=== PATIENT | female | born 1980 | race Caucasian/White ===

== ENCOUNTER → 2016-11-10 | Outpatient (REF) | payer OTHER ==
[~2016-11-10] MED LIST: ACET500T PO; ACET50TA PO; ANUS2.5C2 TOP; DOCU10ELUD PO; IBUP80TA PO; LEVO75TA2 OR; MOM30SS PO; PRENTAB8 PO; TUMS500C PO
[2016-11-10 13:58] LABS: BASO % 0.3 % (0.0-1.0); EOS # 0.1 K/mm3 (0.0-0.50); EOS % 1.3 % (0.0-3.0); LARGE UNSTAINED CELL # 0.2 K/mm3 (0.0-0.4); LARGE UNSTAINED CELL % 1.9 % (0.0-4.0); LYMPH # 2.8 K/mm3 (1.5-4.5); LYMPH % 28.5 % (24.0-44.0); MEAN CORPUSCULAR HEMOGLOBIN 29.9 pg (27.0-33.0); MEAN CORPUSCULAR HGB CONC 34.1 g/dl (32.0-36.5); MEAN CORPUSCULAR VOLUME 87.8 fl (80.0-96.0); MONO # 0.6 K/mm3 (0.0-0.8); MONO % 6.1 % (0.0-5.0); NEUTROPHILS % 61.8 % (36.0-66.0); PLATELET COUNT, AUTOMATED 304 k/mm3 (150-450); RED CELL DISTRIBUTION WIDTH 12.3 % (11.5-14.5); WHITE BLOOD COUNT 9.7 K/mm3 (4.0-10.0)
[2016-11-10 14:09] LABS: HBsAg Prenatal NEGATIVE (NEGATIVE)
[2016-11-10 14:10] LABS: CONTROL LINE INT CTR LINE PRESENT; HIV SCRN NEGATIVE (NEGATIVE); HIV SCRN1 NEGATIVE (NEGATIVE)
== END ==
LOC: M LABSMT 13:08
PROVIDERS: ATTEND Obstetrics & Gynecology
DX: Z36 Encounter for antenatal screening of mother (principal); Z3A.00 Weeks of gestation of pregnancy not specified

== ENCOUNTER → 2016-12-31 | Outpatient (CLI) | payer OTHER ==
[2016-12-31 20:08] LABS: FREE T4 1.15 NG/DL (0.76-1.46)
== END ==
LOC: M SMT 15:34
PROVIDERS: ATTEND Advanced Practice Midwife
DX: E03.9 Hypothyroidism, unspecified (principal)

== ENCOUNTER → 2017-01-02 | Outpatient (CLI) | payer OTHER ==
--- NOTE | 2017-01-02 15:25 | REP ---
Clinical: Anatomical evaluation. Comparison: None . Findings: Examination demonstrates a single live intrauterine in transverse presentation. motion is identified by technologist. Placenta is noted anteriorly and grade zero without evidence for placenta previa or abruption. Amniotic fluid volume is normal. Cervix measures 4.6 cm in length and appears closed. No evidence for nuchal cord. Gestational age by current measurements 19 weeks 6 days with YESICA 05/23/2017 . FHR equals 147 beats per minute. BPD 4.5 cm 18 weeks 5 days HC 17.1 cm 19 weeks 5 days AC 14.9 cm 20 weeks 1 day FL 3.0 cm 19 weeks 1 day HL 2.9 cm 19 weeks 3 days HC/AC ratio 1.15 Estimated weight 306 grams ( 40th percentile). Anatomical assessment demonstrates normal structures including cranium, choroid plexus, cavum, cerebellum/posterior fossa, facial profile, lungs, four-chamber heart/ left ventricular outflow tract, diaphragm, stomach, cord insertion/three-vessel cord, kidneys/bladder, spine, and extremities. Limited evaluation of the facial features and right cardiac ventricular outflow tract. Impression: Single live intrauterine in transverse lie. With the exception of facial features and right cardiac ventricular outflow tract (not visualized), anatomical assessment is complete and normal. Signed by Jacob Carmichael MD 01/02/2017 03:18 P
== END ==
LOC: M SMT 13:51
PROVIDERS: ATTEND Specialist
DX: Z36 Encounter for antenatal screening of mother (principal); Z3A.19 19 weeks gestation of pregnancy

== ENCOUNTER → 2017-02-02 | Outpatient (CLI) | payer OTHER ==
--- NOTE | 2017-02-03 04:17 | REP ---
Clinical: Anatomical evaluation. Comparison: 01/02/2017 . Findings: Examination demonstrates a single live intrauterine in cephalic presentation. motion is identified by technologist. Placenta is noted anteriorly and grade zero without evidence for placenta previa or abruption. Amniotic fluid volume is normal. Cervix measures 3.5 cm in length and appears closed. No evidence for nuchal cord. Gestational age by current measurements 23 weeks 5 days with YESICA 05/27/2017 . FHR equals 163 beats per minute. Estimated weight 664 grams ( 40th percentile). Anatomical assessment demonstrates normal structures including cranium, choroid plexus, lungs, four-chamber heart/ventricular outflow tracts, diaphragm, stomach, cord insertion/three-vessel cord, kidneys/bladder, spine, and extremities. Impression: Single live intrauterine in cephalic presentation demonstrating appropriate interval growth. In conjunction with prior examination anatomical assessment is complete and normal. Signed by Jacob Carmichael MD 02/03/2017 04:08 A
== END ==
LOC: M SMT 14:58
PROVIDERS: ATTEND Specialist
DX: Z36 Encounter for antenatal screening of mother (principal); Z3A.23 23 weeks gestation of pregnancy

== ENCOUNTER → 2017-03-19 | Outpatient (CLI) | payer OTHER ==
[2017-03-19 19:27] LABS: FREE T4 1.03 NG/DL (0.76-1.46)
== END ==
LOC: M SMT 11:40
PROVIDERS: ATTEND Obstetrics & Gynecology
DX: Z36 Encounter for antenatal screening of mother (principal); O99.89 Other specified diseases and conditions complicating pregnancy, childbirth and the puerperium; E03.9 Hypothyroidism, unspecified; Z3A.00 Weeks of gestation of pregnancy not specified

== ENCOUNTER → 2017-04-11 | Outpatient (CLI) | payer OTHER ==
[2017-04-11 18:29] LABS: BASO % 0.2 % (0.0-1.0); EOS # 0.1 K/mm3 (0.0-0.50); EOS % 0.8 % (0.0-3.0); LARGE UNSTAINED CELL # 0.2 K/mm3 (0.0-0.4); LARGE UNSTAINED CELL % 1.6 % (0.0-4.0); LYMPH # 2.7 K/mm3 (1.5-4.5); LYMPH % 18.5 % (24.0-44.0); MEAN CORPUSCULAR VOLUME 88.6 fl (80.0-96.0); MONO # 0.7 K/mm3 (0.0-0.8); MONO % 5.1 % (0.0-5.0); NEUTROPHILS % 73.8 % (36.0-66.0); PLATELET COUNT, AUTOMATED 293 k/mm3 (150-450); WHITE BLOOD COUNT 13.5 K/mm3 (4.0-10.0)
== END ==
LOC: M WUC 15:43
PROVIDERS: ATTEND Obstetrics & Gynecology
DX: Z36 Encounter for antenatal screening of mother (principal); Z3A.00 Weeks of gestation of pregnancy not specified

== ENCOUNTER → 2017-05-04 | Outpatient (REF) | payer OTHER | LOC: M LAB REF 12:51 | PROVIDERS: ATTEND Advanced Practice Midwife | DX: Z36 Encounter for antenatal screening of mother (principal); Z3A.00 Weeks of gestation of pregnancy not specified ==

== ENCOUNTER → 2017-05-11 | Outpatient (CLI) | payer OTHER ==
--- NOTE | 2017-05-11 16:38 | REP ---
Obstetric ultrasound for size, date discrepancy: Based on the first ultrasound during this gestation gestational age is 38 weeks 2 days with an YESICA of 05/23/2017. Based on the ultrasound today gestational age is 36 weeks 2 days with an YESICA of nine 11/24/2016. There is a single intrauterine gestation in a vertex presentation. The heart rate is 131 beats per minute. The placenta is anterior and there is no placenta previa. The amniotic fluid volume subjectively is low normal. The amniotic fluid index is 7.1. There is a 7.3 - 23.5 weight is 3319 grams (7 pounds, 5 ounces). This is the 52nd percentile for 38 weeks 2 days. Umbilical artery Doppler assessment: SD ratio 2.86 Resistive index 0.65 Diastolic flow velocity 30.5 cm/sec. These values are in their normal ranges. Signed by Rambo Woods MD 05/11/2017 04:29 P
== END ==
LOC: M SMT 14:57
PROVIDERS: ATTEND Advanced Practice Midwife
DX: O26.843 Uterine size-date discrepancy, third trimester (principal); Z3A.36 36 weeks gestation of pregnancy

== ENCOUNTER 2017-05-14 06:07 | Inpatient (IN) | payer OTHER ==
[~2017-05-14] VITALS: Ht 167.6 cm; Wt 122.0 kg
[2017-05-14 06:19] VITALS: BP 131/85
[2017-05-14 07:16] LABS: MEAN CORPUSCULAR HGB CONC 34.2 g/dl (32.0-36.5); MEAN CORPUSCULAR VOLUME 87.9 fl (80.0-96.0); RED CELL DISTRIBUTION WIDTH 13.3 % (11.5-14.5); WHITE BLOOD COUNT 11.2 K/mm3 (4.0-10.0)
[2017-05-14] MEDS ORDERED: FENTANYL 2MCG/ML ROPIVACAINE 0.2% IN 0.9% NACL 200ML IVBAG As Ordered ONE (07:20)
[2017-05-14] MEDS ORDERED: LR 1,000 ML IV SCH (07:29)
[2017-05-14] MEDS ORDERED: ePHEDrine SULFATE 25 MG/5 ML(5MG/ML) SYRINGE IV PRN (08:15)
[2017-05-14] MEDS ORDERED: EPIDURAL/PCA KEYS XX PRN (08:15)
[2017-05-14] MEDS ORDERED: EPIDURAL COMMENT XX SCH (08:15)
[2017-05-14] MEDS ORDERED: LACTATED RINGER'S 1000 ML IV PRN (08:15)
[2017-05-14] MEDS ORDERED: diphenhydrAMINE INJ 50MG/ML VIAL (J1200) IV PRN (08:15)
[2017-05-14] MEDS ORDERED: NALOXONE INJ 0.4 MG/1 ML VIAL (J2310) IV PRN (08:15)
[2017-05-14] MEDS ORDERED: ONDANSETRON 4MG/2ML VIAL (J2405) IV PRN ×2 (08:15→11:30)
[2017-05-14] MEDS ORDERED: FENTANYL/ROPIVACAINE/NACL BAG 200 ML EPIDURAL SCH (08:15)
[2017-05-14] MEDS ORDERED: REFRIGERATOR IV KEYS XX PRN (08:15)
[2017-05-14] MEDS ORDERED: OXYTOCIN DRIP 30 UNITS in APPROPRIATE DILUENT 1 EA IV SCH (09:00)
--- NOTE | 2017-05-14 09:29 | HPE ---
DATE OF ADMISSION: 05/14/2017 HISTORY: 37-year-old 6, para 4-0-1-4 female at 38-2/7 weeks gestation by last menstrual period (LMP) consistent with six week ultrasound. Estimated date of confinement (EDC) of 05/26/2017 who presents with regular contractions every 2-3 minutes for the last several hours, contractions increased in intensity, small amount of vaginal bleeding. There is good movement. COURSE: Patient initiated care at 13 weeks gestation. On 11/18/2016 her blood pressure was 126/80, weight 275 pounds. course was unremarkable. OBSTETRICAL HISTORY: 1. May 2001, 40 weeks, vaginal delivery, 7 pound 12 ounce male infant. 2. May 2005, 40 weeks, vaginal delivery, 7 pound 10 ounce male . 3. 2007, 40 weeks, vaginal delivery, 8 pound 4 ounce female infant. 4. 2011, 42 weeks, vaginal delivery 7 pound 6 ounce female . 5. 2014, 7 week spontaneous miscarriage. MEDICAL HISTORY: 1. Varicose vein left leg. 2. Hypothyroidism. 3. Depression/anxiety. SURGERIES: None. ALLERGIES: None. SOCIAL HISTORY: The father of the baby is not involved. The patient smoked half a pack of cigarettes per day during . She smokes more when she is not . She denies alcohol or drug use. FAMILY HISTORY: Noncontributory. PHYSICAL EXAMINATION: Blood pressure 134/74, pulse 84. She appears uncomfortable. Head and neck exam normal. Lungs clear. Heart regular rate and rhythm. Abdomen nontender, gravid. heart tones category 1. Cervix 5 cm, 80% effaced, -2 station, vertex, intact. Extremities nontender. LABORATORIES: Blood type A positive. Rubella immune. RPR nonreactive. Hepatitis B and C negative. HIV negative. ASSESSMENT: 37-year-old G6, P4 female at 38-2/7 weeks gestation who presents in active labor. Patient was admitted on 05/14/2017.
[2017-05-14] MEDS ORDERED: DOCUSATE SODIUM 100 MG CAP PO PRN (11:30)
[2017-05-14] MEDS ORDERED: ACETAMINOPHEN 500 MG TAB PO PRN (11:30)
[2017-05-14] MEDS ORDERED: RHOGAM 300 MCG (1500 IU) INJ (J2790) IM SCH (11:30)
[2017-05-14] MEDS ORDERED: OXYTOCIN DRIP 30 UNITS in APPROPRIATE DILUENT 1 EA IV ONE (11:30)
[2017-05-14] MEDS ORDERED: DIBUCAINE 1% OINTMENT 30GM TOP PRN (11:30)
[2017-05-14] MEDS ORDERED: METHYLERGONOVINE MALEATE 0.2 MG TAB PO PRN (11:30)
[2017-05-14] MEDS ORDERED: MEASLES,MUMPS,RUBELLA VACCINE INJ (MMR-II) (90707) SC SCH (11:30)
[2017-05-14] MEDS ORDERED: IBUPROFEN 800 MG TAB PO PRN (11:30)
[2017-05-14 13:30] VITALS: BP 116/55
[2017-05-14] MEDS: PRENATAL VITAMINS CHEWABLE TABLET PO SCH (17:13)
[2017-05-14 18:23] VITALS: BP 115/65
[2017-05-15 05:59] VITALS: BP 124/55
[2017-05-15] MEDS: PRENATAL VITAMINS CHEWABLE TABLET PO SCH (09:25)
--- NOTE | 2017-05-15 10:32 | DN ---
DATE OF DELIVERY: 05/14/2017 PREDELIVERY DIAGNOSIS: 38-2/7 weeks , active labor. POSTDELIVERY DIAGNOSIS: Delivered. PROCEDURE: Spontaneous vaginal delivery. INSPECTOR AIR CARRIER: Jakub Goodwin MD ANESTHESIA: Epidural. ESTIMATED BLOOD LOSS: 30 mL. FINDINGS: 7 pound 7 ounce or 3392 gram male . scores of 9 and 9. DELIVERY SUMMARY: After a short second stage, the patient had spontaneous delivery of a 7 pound 7 ounce male with scores of 9 and 9 under epidural anesthesia. A loose nuchal cord times one was reduced. The shoulders delivered with ease. The cried spontaneously and was handed to the mother. The placenta delivered spontaneously and appeared to be intact. The patient received IV pitocin immediately after delivery of the placenta. There were no vaginal lacerations present. Sponge counts were correct.
[2017-05-15 17:44] VITALS: BP 115/51
[2017-05-15 21:07] VITALS: BP 115/51
[2017-05-16 05:45] VITALS: BP 131/72
[2017-05-16] MEDS: PRENATAL VITAMINS CHEWABLE TABLET PO SCH (09:15)
== END 2017-05-16 11:50 | disposition home or self-care (01) | DRG 560 ==
LOC: M LDO 06:07 → M LDI 06:32 → M OBS 12:45
PROVIDERS: ADMIT Obstetrics & Gynecology; ATTEND Obstetrics & Gynecology
PROC: 10E0XZZ Delivery of Products of Conception, External Approach (ICD-10-PCS; principal; 2017-05-14)
DX: O99.334 Smoking (tobacco) complicating childbirth (principal); Z37.0 Single live birth; Z3A.38 38 weeks gestation of pregnancy; F17.210 Nicotine dependence, cigarettes, uncomplicated; O69.82X0 Labor and delivery complicated by other cord entanglement, without compression, not applicable or unspecified

== ENCOUNTER → 2018-03-26 | Outpatient (CLI) | payer OTHER ==
[2018-03-26 12:19] LABS: ANION GAP 7 MEQ/L (8-16); BLOOD UREA NITROGEN 24 MG/DL (7-18); CARBON DIOXIDE LEVEL 29 MEQ/L (21-32); CHLORIDE LEVEL 107 MEQ/L (98-107); CREATININE FOR GFR 0.77 MG/DL (0.55-1.30); GLOMERULAR FILTRATION RATE > 60.0 (>60); GLUCOSE, FASTING 78 MG/DL (70-100); POTASSIUM SERUM 4.5 MEQ/L (3.5-5.1); SODIUM LEVEL 143 MEQ/L (136-145)
[2018-03-26 12:20] LABS: ALBUMIN 3.8 GM/DL (3.2-5.2); ALBUMIN/GLOBULIN RATIO 1.12 (1.00-1.93); ALKALINE PHOSPHATASE 70 U/L (45-117); ALT/SGPT 23 U/L (12-78); AST/SGOT 6 U/L (7-37); BILIRUBIN,TOTAL 0.5 MG/DL (0.2-1.0); CALCIUM LEVEL 8.4 MG/DL (8.5-10.1); CHOLESTEROL LEVEL 177 MG/DL (<200); CHOLESTEROL RISK RATIO 4.425 (<5); FREE T4 1.22 NG/DL (0.76-1.46); HDL CHOLESTEROL 40 MG/DL (>40); LDL CHOLESTEROL 116.4 MG/DL (<100); NON-HDL-C 137 MG/DL; TOTAL PROTEIN 7.2 GM/DL (6.4-8.2); TRIGLYCERIDES LEVEL 103 MG/DL (<150); VITAMIN B12 LEVEL 458 PG/ML (247-911)
[2018-03-26 12:26] LABS: ESTIMATED AVERAGE GLUCOSE 97 MG/DL (60-110)
[2018-03-26 15:07] LABS: BASO % 0.5 % (0.0-1.0); EOS # 0.1 10^3/uL (0.0-0.50); EOS % 1.7 % (0.0-3.0); HEMATOCRIT 42.5 % (36.0-47.0); HEMOGLOBIN 14.4 g/dl (12.0-15.5); IMMATURE GRANULOCYTE % 0.2 % (0-3.0); LYMPH # 2.7 10^3/uL (1.5-4.5); LYMPH % 41.6 % (24.0-44.0); MEAN CORPUSCULAR HEMOGLOBIN 29.7 pg (27.0-33.0); MEAN CORPUSCULAR HGB CONC 33.9 g/dl (32.0-36.5); MEAN CORPUSCULAR VOLUME 87.6 fl (80.0-96.0); MONO # 0.6 10^3/uL (0.0-0.8); MONO % 9.5 % (0.0-5.0); NEUTROPHILS % 46.5 % (36.0-66.0); PLATELET COUNT, AUTOMATED 253 10^3/uL (150-450); RED BLOOD COUNT 4.85 10^6/uL (4.00-5.40); RED CELL DISTRIBUTION WIDTH 12.1 % (11.5-14.5); WHITE BLOOD COUNT 6.4 10^3/uL (4.0-10.0)
== END ==
LOC: M WUC 08:23
DX: E03.9 Hypothyroidism, unspecified (principal); E66.01 Morbid (severe) obesity due to excess calories; Z86.2 Personal history of diseases of the blood and blood-forming organs and certain disorders involving the immune mechanism
CPT/HCPCS: 84443

== ENCOUNTER → 2018-04-26 | Outpatient (REF) | payer OTHER ==
[2018-04-26 23:06] LABS: CHLAMYDIA DNA AMPLIFICATION NEGATIVE (NEGATIVE); GC DNA AMPLIFICATION NEGATIVE (NEGATIVE)
== END ==
LOC: M SFHCLERA 15:16
DX: R30.0 Dysuria (principal)

== ENCOUNTER → 2018-05-11 | Outpatient (CLI) | payer OTHER | LOC: M WHC 15:01 | DX: R59.1 Generalized enlarged lymph nodes (principal) | CPT/HCPCS: 76882 ==

== ENCOUNTER → 2018-12-22 | Outpatient (REF) | payer OTHER ==
[2018-12-22 11:50] LABS: BASO % 0.5 % (0.0-1.0); EOS # 0.1 10^3/uL (0.0-0.50); EOS % 1.7 % (0.0-3.0); HEMATOCRIT 43.9 % (36.0-47.0); HEMOGLOBIN 14.6 g/dl (12.0-15.5); LYMPH # 2.4 10^3/uL (1.5-4.5); LYMPH % 36.2 % (24.0-44.0); MEAN CORPUSCULAR HEMOGLOBIN 29.4 pg (27.0-33.0); MEAN CORPUSCULAR HGB CONC 33.3 g/dl (32.0-36.5); MEAN CORPUSCULAR VOLUME 88.3 fl (80.0-96.0); MONO # 0.8 10^3/uL (0.0-0.8); MONO % 12.2 % (0.0-5.0); NEUTROPHILS # 3.3 10^3/uL (1.8-7.7); NEUTROPHILS % 49.1 % (36.0-66.0); PLATELET COUNT, AUTOMATED 294 10^3/uL (150-450); RED BLOOD COUNT 4.97 10^6/uL (4.00-5.40); WHITE BLOOD COUNT 6.7 10^3/uL (4.0-10.0)
[2018-12-22 12:14] LABS: C REACTIVE PROTEIN QUANTITATIV < 0.30 MG/DL (0.00-0.30); CHOLESTEROL LEVEL 191 MG/DL (<200); CHOLESTEROL RISK RATIO 5.787 (<5); FREE T4 1.12 NG/DL (0.76-1.46); HDL CHOLESTEROL 33 MG/DL (>40); LDL CHOLESTEROL 122 MG/DL (<100); NON-HDL-C 158 MG/DL; THYROID STIMULATING HORMONE 0.645 uIU/ML (0.358-3.740); TRIGLYCERIDES LEVEL 180 MG/DL (<150); VITAMIN B12 LEVEL 602 PG/ML (247-911)
[2018-12-22 12:15] LABS: ERYTHROCYTE SEDIMENTATION RATE 17 mm/hr (0-20)
[2018-12-22 13:11] LABS: HEMOGLOBIN A1c 5.4 %
== END ==
LOC: M SFHCPLAZ 08:54
PROVIDERS: ATTEND Physician Assistant Medical
DX: E03.9 Hypothyroidism, unspecified (principal); E66.01 Morbid (severe) obesity due to excess calories; Z86.2 Personal history of diseases of the blood and blood-forming organs and certain disorders involving the immune mechanism; R59.1 Generalized enlarged lymph nodes

== ENCOUNTER 2020-05-09 15:30 | Emergency (ER) | payer OTHER ==
[~2020-05-09 15:30] MED LIST changes: -ACET50TA PO; -DOCU10ELUD PO; +DOCU5LIQ PO; +MAPA500T17 PO
[2020-06-08 12:16] LABS: APPEARANCE, URINE CLEAR (CLEAR); BACTERIA, URINE AUTO NEGATIVE (NEGATIVE); BILIRUBIN, URINE AUTO NEGATIVE (NEGATIVE); BLOOD, URINE BLOOD NEGATIVE (NEGATIVE); COLOR, URINE YELLOW (YELLOW); GLUCOSE, URINE (UA) AUTO NEGATIVE (NEGATIVE); KETONE, URINE AUTO NEGATIVE (NEGATIVE); LEUKOCYTE ESTERASE, URINE AUTO NEGATIVE (NEGATIVE); NITRITE, URINE AUTO NEGATIVE (NEGATIVE); PROTEIN, URINE AUTO NEGATIVE (NEGATIVE); RBC, URINE AUTO 1 /HPF (0-3); SPECIFIC GRAVITY URINE AUTO 1.019 (1.002-1.035); SQUAMOUS EPITHELIAL CELL UR AU 0 /HPF (0-6); UROBILINOGEN, URINE AUTO 0.2 mg/dL (0.0-2.0); WBC, URINE AUTO 1 /HPF (0-3)
[2020-06-08 12:20] LABS: BASO % 0.3 % (0.0-1.0); EOS # 0.1 10^3/uL (0.0-0.5); EOS % 1.3 % (0.0-3.0); LYMPH # 2.4 10^3/uL (1.5-5.0); LYMPH % 29.5 % (24.0-44.0); MEAN CORPUSCULAR HEMOGLOBIN 28.6 pg (27.0-33.0); MEAN CORPUSCULAR HGB CONC 32.6 g/dl (32.0-36.5); MEAN CORPUSCULAR VOLUME 87.9 fl (80.0-96.0); MONO # 0.8 10^3/uL (0.0-0.8); MONO % 9.8 % (0.0-5.0); NEUTROPHILS # 4.7 10^3/uL (1.5-8.5); NEUTROPHILS % 58.5 % (36.0-66.0); PLATELET COUNT, AUTOMATED 294 10^3/uL (150-450); RED BLOOD COUNT 4.89 10^6/uL (4.00-5.40)
--- NOTE | 2020-06-19 09:18 | ECGEPIP ---
[facility] - ED Test Date: 2020-05-09 Pat Name: MICHAEL RAI Department: Room: - Gender: Female Fire Sprinkler Fitter: SIM : [id number] Requested By: EMERGENCY ROOM Order Number: [id number] Reading MD: Shirley Koehler Measurements Intervals [place] Rate: 70 P: 54 NM: 136 QRS: 7 QRSD: 110 T: 31 QT: 399 QTc: 433 Interpretive Statements SINUS RHYTHM WITH SINUS ARRHYTHMIA INCOMPLETE RIGHT BUNDLE BRANCH BLOCK BORDERLINE ECG SEE SCANNED DOWNTIME RECORD
[2020-06-23 12:41] LABS: BLOOD UREA NITROGEN 21 MG/DL (7-18); CARBON DIOXIDE LEVEL 29 MEQ/L (21-32); CHLORIDE LEVEL 107 MEQ/L (98-107); CK-MB VALUE MASS 1.8 NG/ML (<3.6); CPK CREATINE PHOSPHOKINASE 174 U/L (26-192); CREATININE FOR GFR 0.89 MG/DL (0.55-1.30); FERRITIN 19 NG/ML (8-252); GLOMERULAR FILTRATION RATE > 60.0 (>58); GLUCOSE, FASTING 86 MG/DL (70-100); MB/CK RELATIVE INDEX 1.03 (< OR =4); POTASSIUM SERUM 4.1 MEQ/L (3.5-5.1); SODIUM LEVEL 141 MEQ/L (136-145); THYROID STIMULATING HORMONE 0.548 uIU/ML (0.358-3.740); TROPONIN I < 0.02 NG/ML (< 0.10)
[2020-06-23 13:33] LABS: HCG, SERUM QUALITATIVE NEGATIVE (NEGATIVE)
== END 2020-05-09 18:56 | disposition home or self-care (01) ==
LOC: M ED 15:30
DX: R42 Dizziness and giddiness (principal); I49.9 Cardiac arrhythmia, unspecified; E03.9 Hypothyroidism, unspecified; Z79.899 Other long term (current) drug therapy

== ENCOUNTER → 2020-05-17 | Outpatient (REF) | payer OTHER | LOC: M SFHCWAGY 12:17 | PROVIDERS: ATTEND Nurse Practitioner Women's Health | DX: Z12.4 Encounter for screening for malignant neoplasm of cervix (principal) ==

== ENCOUNTER → 2020-06-28 | Outpatient (CLI) | payer OTHER | LOC: M PLALAB 14:46 | PROVIDERS: ATTEND Nurse Practitioner Adult Health | DX: E03.9 Hypothyroidism, unspecified (principal) ==

== ENCOUNTER → 2021-06-28 | Outpatient (REF) | LOC: M LABSMTC 10:39 | PROVIDERS: ATTEND Pediatrics | DX: Z11.52 Encounter for screening for COVID-19 (principal) ==

== ENCOUNTER → 2021-07-02 | Outpatient (REF) | LOC: M EMP 08:32 | PROVIDERS: ATTEND Family Medicine | DX: Z11.52 Encounter for screening for COVID-19 (principal) ==

== ENCOUNTER 2021-07-04 13:31 | Outpatient (CLI) | payer OTHER ==
[2021-07-04] VITALS (7 sets, daily range): BP systolic 127–160; BP diastolic 62–89
[~2021-07-04] VITALS: Ht 177.8 cm; Wt 145.5 kg
[~2021-07-04 13:31] MED LIST changes: +ALBUTEROL 90 MCG/ACT 8GM HFA INHALER INH PRN; +ALBUTEROL SULFATE 2.5 MG/0.5 ML INH NEB SOLN INH PRN; +EPINEPHrine INJ 1 MG/ML 1ML AMP IM PRN; +NS 1,000 ML IV SCH; +diphenhydrAMINE 50MG/ML VIAL (J1200) IV PRN; +methylPREDNISolone 125MG 2ML VIAL IV PRN
[2021-07-04] MEDS ORDERED: ACETAMINOPHEN TAB 650MG DOSE (2X325MG) PO ONE (15:00)
[2021-07-04] MEDS ORDERED: CASIRIVIMAB/IMDEVIMAB 1,200 MG in NS 250 ML IV ONE (15:30)
[2021-07-04] MEDS ORDERED: ZOLO50TA PO (16:48)
[2021-07-04] MEDS ORDERED: SYNT88TA2 PO (16:49)
== END 2021-07-04 17:30 | disposition home or self-care (01) ==
LOC: M MS4PR 13:31 → M OPCLI4 13:31 → M 4MAIN 13:34 → M OPCLI4 17:30
PROVIDERS: ATTEND Physician Assistant
DX: U07.1 COVID-19 (principal)

== ENCOUNTER → 2021-08-23 | Outpatient (CLI) | payer OTHER ==
[~2021-08-23] MED LIST changes: -ALBUTEROL 90 MCG/ACT 8GM HFA INHALER INH PRN; -ALBUTEROL SULFATE 2.5 MG/0.5 ML INH NEB SOLN INH PRN; -EPINEPHrine INJ 1 MG/ML 1ML AMP IM PRN; -NS 1,000 ML IV SCH; +SYNT88TA2 PO; +ZOLO50TA PO; -diphenhydrAMINE 50MG/ML VIAL (J1200) IV PRN; -methylPREDNISolone 125MG 2ML VIAL IV PRN
[2021-08-23 07:06] LABS: HEMATOCRIT 43.7 % (36.0-47.0); HEMOGLOBIN 14.3 g/dl (12.0-15.5); MEAN CORPUSCULAR HEMOGLOBIN 28.4 pg (27.0-33.0); MEAN CORPUSCULAR HGB CONC 32.7 g/dl (32.0-36.5); MEAN CORPUSCULAR VOLUME 86.7 fl (80.0-96.0); PLATELET COUNT, AUTOMATED 328 10^3/uL (150-450); RED BLOOD COUNT 5.04 10^6/uL (4.00-5.40); WHITE BLOOD COUNT 8.4 10^3/uL (4.0-10.0)
[2021-08-23 07:24] LABS: HEMOGLOBIN A1c 5.4 %
[2021-08-23 07:47] LABS: ALBUMIN 3.8 GM/DL (3.2-5.2); ALT/SGPT 47 U/L (12-78); BILIRUBIN,TOTAL 0.3 MG/DL (0.2-1.0); BLOOD UREA NITROGEN 20 MG/DL (7-18); CALCIUM LEVEL 8.9 MG/DL (8.5-10.1); CARBON DIOXIDE LEVEL 28 MEQ/L (21-32); CHLORIDE LEVEL 107 MEQ/L (98-107); CHOLESTEROL LEVEL 229 MG/DL (<200); CHOLESTEROL RISK RATIO 8.178 (<5); CREATININE FOR GFR 0.98 MG/DL (0.55-1.30); FREE T4 1.08 NG/DL (0.76-1.46); GLOMERULAR FILTRATION RATE > 60.0 (>58); GLUCOSE, FASTING 92 MG/DL (70-100); HDL CHOLESTEROL 28 MG/DL (>40); LDL CHOLESTEROL 132 MG/DL (<100); NON-HDL-C 201 MG/DL; POTASSIUM SERUM 4.3 MEQ/L (3.5-5.1); SODIUM LEVEL 139 MEQ/L (136-145); TOTAL PROTEIN 7.4 GM/DL (6.4-8.2); TRIGLYCERIDES LEVEL 343 MG/DL (<150)
[2021-08-23 11:18] LABS: TOTAL 25(OH) VITAMIN D 26.4 NG/ML (30.0-100.0)
[2021-08-23 11:19] LABS: FOLATE 11.6 NG/ML; VITAMIN B12 LEVEL 416 PG/ML
== END ==
LOC: M LAB 06:20
PROVIDERS: ATTEND Physician Assistant
DX: E03.9 Hypothyroidism, unspecified (principal); E78.2 Mixed hyperlipidemia; Z13.1 Encounter for screening for diabetes mellitus; R20.0 Anesthesia of skin

== ENCOUNTER → 2022-01-01 | Outpatient (CLI) | payer OTHER ==
[2022-01-01 08:12] LABS: FREE T4 1.36 NG/DL (0.76-1.46); THYROID STIMULATING HORMONE 0.706 uIU/ML (0.358-3.740)
== END ==
LOC: M LAB 06:15
PROVIDERS: ATTEND Physician Assistant
DX: E03.9 Hypothyroidism, unspecified (principal)

== ENCOUNTER → 2022-04-22 | Outpatient (CLI) | payer OTHER ==
[~2022-04-22] MED LIST changes: +BUPR150T12; +CEPH500C; +LEVO200T4; +OMEP40CA5
== END ==
LOC: M RAD 14:25
PROVIDERS: ATTEND Physician Assistant
DX: M79.89 Other specified soft tissue disorders (principal); R22.42 Localized swelling, mass and lump, left lower limb

== ENCOUNTER → 2022-04-22 | Outpatient (REF) | payer OTHER ==
[~2022-04-22] MED LIST changes: -BUPR150T12; -CEPH500C; -LEVO200T4; -OMEP40CA5
[2022-04-22 12:56] LABS: BASO % 0.3 % (0.0-1.0); EOS # 0.2 10^3/uL (0.0-0.5); EOS % 1.7 % (0.0-3.0); HEMATOCRIT 44.1 % (36.0-47.0); HEMOGLOBIN 14.1 g/dl (12.0-15.5); LYMPH # 2.5 10^3/uL (1.5-5.0); LYMPH % 24.7 % (24.0-44.0); MEAN CORPUSCULAR HEMOGLOBIN 27.7 pg (27.0-33.0); MEAN CORPUSCULAR VOLUME 86.6 fl (80.0-96.0); MONO # 1.1 10^3/uL (0.0-0.8); MONO % 10.7 % (2.0-8.0); NEUTROPHILS # 6.4 10^3/uL (1.5-8.5); NEUTROPHILS % 62.1 % (36.0-66.0); PLATELET COUNT, AUTOMATED 331 10^3/uL (150-450); RED BLOOD COUNT 5.09 10^6/uL (4.00-5.40); WHITE BLOOD COUNT 10.3 10^3/uL (4.0-10.0)
[2022-04-22 13:35] LABS: BLOOD UREA NITROGEN 22 MG/DL (7-18); CALCIUM LEVEL 9.3 MG/DL (8.5-10.1); CARBON DIOXIDE LEVEL 27 MEQ/L (21-32); CHLORIDE LEVEL 108 MEQ/L (98-107); CREATININE FOR GFR 1.01 MG/DL (0.55-1.30); GLOMERULAR FILTRATION RATE > 60.0 (>58); GLUCOSE, FASTING 82 MG/DL (70-100); POTASSIUM SERUM 4.5 MEQ/L (3.5-5.1); SODIUM LEVEL 142 MEQ/L (136-145)
== END ==
LOC: M SFHCADAM 11:38
PROVIDERS: ATTEND Physician Assistant
DX: M79.89 Other specified soft tissue disorders (principal)

== ENCOUNTER 2022-04-29 06:50 | Emergency (ER) | payer OTHER ==
[~2022-04-29] VITALS: Ht 175.3 cm; Wt 157.1 kg
[2022-04-29] MEDS ORDERED: OMEP40CA5 (06:57)
[2022-04-29] MEDS ORDERED: LEVO200T4 (06:57)
[2022-04-29] MEDS ORDERED: BUPR150T12 (06:57)
[2022-04-29] MEDS ORDERED: CEPH500C (06:58)
[2022-04-29 09:04] VITALS: BP 155/75
== END 2022-04-29 09:09 | disposition home or self-care (01) ==
LOC: M ED 06:50
DX: I80.02 Phlebitis and thrombophlebitis of superficial vessels of left lower extremity (principal); I83.812 Varicose veins of left lower extremity with pain; F41.9 Anxiety disorder, unspecified; F17.200 Nicotine dependence, unspecified, uncomplicated; E03.9 Hypothyroidism, unspecified; Z79.899 Other long term (current) drug therapy; Z79.890 Hormone replacement therapy

== ENCOUNTER → 2022-05-05 | Outpatient (REF) | payer OTHER ==
[~2022-05-05] MED LIST changes: +BUPR150T12; +CEPH500C; +LEVO200T4; +OMEP40CA5
[2022-05-05 16:32] LABS: BASO % 0.3 % (0.0-1.0); EOS % 1.6 % (0.0-3.0); HEMATOCRIT 44.6 % (36.0-47.0); HEMOGLOBIN 14.5 g/dl (12.0-15.5); LYMPH % 29.5 % (24.0-44.0); MEAN CORPUSCULAR HEMOGLOBIN 27.9 pg (27.0-33.0); MEAN CORPUSCULAR HGB CONC 32.5 g/dl (32.0-36.5); MEAN CORPUSCULAR VOLUME 85.8 fl (80.0-96.0); MONO % 7.6 % (2.0-8.0); NEUTROPHILS % 60.4 % (36.0-66.0); PLATELET COUNT, AUTOMATED 344 10^3/uL (150-450); WHITE BLOOD COUNT 11.2 10^3/uL (4.0-10.0)
[2022-05-05 16:33] LABS: EOS # 0.2 10^3/uL (0.0-0.5); LYMPH # 3.3 10^3/uL (1.5-5.0); MONO # 0.9 10^3/uL (0.0-0.8); NEUTROPHILS # 6.8 10^3/uL (1.5-8.5)
== END ==
LOC: M SFHCADAM 15:06
PROVIDERS: ATTEND Physician Assistant
DX: I80.9 Phlebitis and thrombophlebitis of unspecified site (principal)

== ENCOUNTER 2022-05-09 08:58 | Emergency (ER) | payer OTHER ==
[~2022-05-09] VITALS: Ht 175.3 cm; Wt 158.3 kg
[~2022-05-09 08:58] MED LIST changes: -BUPR150T12; +BUPR150T12 PO; -LEVO200T4; +LEVO200T4 PO
[2022-05-09 13:19] LABS: BASO % 0.3 % (0.0-1.0); EOS # 0.1 10^3/uL (0.0-0.5); EOS % 1.3 % (0.0-3.0); HEMATOCRIT 44.9 % (36.0-47.0); HEMOGLOBIN 14.8 g/dl (12.0-15.5); LYMPH # 2.6 10^3/uL (1.5-5.0); LYMPH % 26.4 % (24.0-44.0); MEAN CORPUSCULAR HEMOGLOBIN 28.5 pg (27.0-33.0); MEAN CORPUSCULAR VOLUME 86.5 fl (80.0-96.0); MONO # 0.8 10^3/uL (0.0-0.8); MONO % 8.4 % (2.0-8.0); NEUTROPHILS # 6.3 10^3/uL (1.5-8.5); PLATELET COUNT, AUTOMATED 348 10^3/uL (150-450); RED BLOOD COUNT 5.19 10^6/uL (4.00-5.40); WHITE BLOOD COUNT 9.9 10^3/uL (4.0-10.0)
[2022-05-09 13:45] LABS: ERYTHROCYTE SEDIMENTATION RATE 26 mm/hr (0-20)
[2022-05-09 14:04] LABS: BLOOD UREA NITROGEN 16 MG/DL (7-18); C REACTIVE PROTEIN QUANTITATIV 0.88 MG/DL (0.00-0.30); CALCIUM LEVEL 9.4 MG/DL (8.5-10.1); CARBON DIOXIDE LEVEL 29 MEQ/L (21-32); CHLORIDE LEVEL 105 MEQ/L (98-107); GLOMERULAR FILTRATION RATE > 60.0 (>58); GLUCOSE, FASTING 90 MG/DL (70-100); POTASSIUM SERUM 4.4 MEQ/L (3.5-5.1); SODIUM LEVEL 139 MEQ/L (136-145)
[2022-05-09] MEDS ORDERED: BACI1TAB3 PO (16:12)
[2022-05-09] MEDS ORDERED: IBUP-1720 PO (16:12)
[2022-05-09] MEDS ORDERED: DOXY-443 PO (16:12)
[2022-05-09] MEDS ORDERED: HOME MED LIST COMPLETE! XX SCH (16:15)
[2022-05-09] MEDS ORDERED: ASPI325T45 PO (17:04)
[2022-05-09 17:14] VITALS: BP 165/70
== END 2022-05-09 17:16 | disposition home or self-care (01) ==
LOC: M ED 08:58
DX: I80.02 Phlebitis and thrombophlebitis of superficial vessels of left lower extremity (principal); F17.210 Nicotine dependence, cigarettes, uncomplicated; Z91.81 History of falling

== ENCOUNTER → 2024-01-04 | Outpatient (REF) | payer OTHER ==
[~2024-01-04] MED LIST changes: +ASPI325T45 PO; +BACI1TAB3 PO; +DOXY-443 PO; +IBUP-1720 PO
== END ==
LOC: M SFHCPLAZ 12:51
PROVIDERS: ATTEND Physician Assistant
DX: J06.9 Acute upper respiratory infection, unspecified (principal)

== ENCOUNTER → 2024-02-11 | Outpatient (CLI) | payer OTHER ==
[~2024-02-11] MED LIST changes: +DOXY-323 PO; -DOXY-443 PO; +PROHANCE 279.3MG/ML 15ML VIAL As Ordered ONE; +PROHANCE 279.3MG/ML 5ML VIAL As Ordered ONE
== END ==
LOC: M RAD 17:10
PROVIDERS: ATTEND Family Medicine
DX: H54.60 Unqualified visual loss, one eye, unspecified (principal)
CPT/HCPCS: 70553; A9576

== ENCOUNTER → 2024-03-24 | Outpatient (REF) | payer OTHER ==
[~2024-03-24] MED LIST changes: -PROHANCE 279.3MG/ML 15ML VIAL As Ordered ONE; -PROHANCE 279.3MG/ML 5ML VIAL As Ordered ONE
[2024-03-24 15:02] LABS: ALBUMIN 3.8 G/DL (3.2-5.2); ALKALINE PHOSPHATASE 63 U/L (46-116); ALT/SGPT 42 U/L (7.0-40); AST/SGOT 23 U/L (<34); BILIRUBIN,TOTAL 0.6 MG/DL (0.3-1.2); BLOOD UREA NITROGEN 21 MG/DL (9-23); CARBON DIOXIDE LEVEL 29 MMOL/L (20-31); CHLORIDE LEVEL 106 MMOL/L (98-107); CHOLESTEROL LEVEL 200 MG/DL (<200); CHOLESTEROL RISK RATIO 7.09 (<5); CREATININE FOR GFR 1.01 MG/DL (0.55-1.30); GLOMERULAR FILTRATION RATE > 60.0 (>58); GLUCOSE, FASTING 92 MG/DL (60-100); HDL CHOLESTEROL 28.2 MG/DL (>40); LDL CHOLESTEROL 112.6 MG/DL (<100); NON-HDL-C 171.8 MG/DL; POTASSIUM SERUM 4.3 MMOL/L (3.5-5.1); SODIUM LEVEL 137 MMOL/L (136-145); TOTAL PROTEIN 7.2 G/DL (5.7-8.2); TRIGLYCERIDES LEVEL 296 MG/DL (<150)
[2024-03-24 15:03] LABS: FOLATE 5.4 NG/ML (>5.4); THYROID STIMULATING HORMONE 12.848 uIU/ML (0.55-4.78)
[2024-03-24 15:04] LABS: FREE T4 1.13 NG/DL (0.89-1.76); VITAMIN B12 LEVEL 356 PG/ML (211-911)
[2024-03-24 15:20] LABS: HEMOGLOBIN A1c 5.2 % (4.0-6.0)
== END ==
LOC: M SFHCADAM 08:19
PROVIDERS: ATTEND Physician Assistant
DX: R03.0 Elevated blood-pressure reading, without diagnosis of hypertension (principal); H53.9 Unspecified visual disturbance; E78.2 Mixed hyperlipidemia

== ENCOUNTER → 2024-06-09 | Outpatient (REF) | payer OTHER ==
[2024-06-11 11:57] LABS: HPV APTIMA Not Detected (Not Detected)
== END ==
LOC: M PLALAB 15:34
PROVIDERS: ATTEND Advanced Practice Midwife
DX: R87.610 Atypical squamous cells of undetermined significance on cytologic smear of cervix (ASC-US) (principal)

== ENCOUNTER → 2024-06-09 | Outpatient (CLI) | payer OTHER | LOC: M WHC 09:19 | PROVIDERS: ATTEND Advanced Practice Midwife | DX: Z12.31 Encounter for screening mammogram for malignant neoplasm of breast (principal) ==

== ENCOUNTER 2024-12-16 15:38 | Emergency (ER) | payer OTHER ==
[~2024-12-16] VITALS: Ht 177.8 cm; Wt 158.0 kg
[~2024-12-16 15:38] MED LIST changes: -DOXY-323 PO; +DOXY-441 PO
[2024-12-16] MEDS ORDERED: LEVO25TA5 (15:46)
[2024-12-16 17:42] VITALS: BP 130/74; TEMP 98.1; O2SAT 97
== END 2024-12-16 18:06 | disposition home or self-care (01) ==
LOC: M ED 15:38
DX: S83.91XA Sprain of unspecified site of right knee, initial encounter (principal); X50.1XXA Overexertion from prolonged static or awkward postures, initial encounter; Y92.009 Unspecified place in unspecified non-institutional (private) residence as the place of occurrence of the external cause; Y93.89 Activity, other specified; Y99.9 Unspecified external cause status; M17.11 Unilateral primary osteoarthritis, right knee; E03.9 Hypothyroidism, unspecified; Z79.890 Hormone replacement therapy; Z79.899 Other long term (current) drug therapy

== ENCOUNTER → 2025-05-25 | Outpatient (REF) | payer OTHER ==
[~2025-05-25] MED LIST changes: +LEVO25TA5
[2025-05-25 14:52] LABS: ALT/SGPT 51.0 U/L (7.0-40); AST/SGOT 33.0 U/L (<34); CALCIUM LEVEL 9.2 MG/DL (8.5-10.1); CARBON DIOXIDE LEVEL 29.0 MMOL/L (20-31); CHLORIDE LEVEL 104.0 MMOL/L (98-107); CHOLESTEROL LEVEL 191.0 MG/DL (<200); CHOLESTEROL RISK RATIO 5.53 (<5); CREATININE FOR GFR 0.94 MG/DL (0.55-1.30); FREE T4 1.51 NG/DL (0.89-1.76); GLOMERULAR FILTRATION RATE 76.3 (>58); LDL CHOLESTEROL 93.5 MG/DL (<100); NON-HDL-C 156.5 MG/DL; POTASSIUM SERUM 4.5 MMOL/L (3.5-5.1); SODIUM LEVEL 143.0 MMOL/L (136-145); TRIGLYCERIDES LEVEL 315.0 MG/DL (<150)
[2025-05-25 17:04] LABS: ESTIMATED AVERAGE GLUCOSE 108.0 MG/DL (60-110)
== END ==
LOC: M SFHCADAM 09:37
PROVIDERS: ATTEND Physician Assistant
DX: F32.1 Major depressive disorder, single episode, moderate (principal); E03.9 Hypothyroidism, unspecified; F17.210 Nicotine dependence, cigarettes, uncomplicated; E66.01 Morbid (severe) obesity due to excess calories

== ENCOUNTER 2025-05-28 06:19 | Emergency (ER) | payer OTHER, SELFPAY ==
[~2025-05-28] VITALS: Ht 177.8 cm; Wt 163.2 kg
[2025-05-28] MEDS ORDERED: ISOVUE-370 76% 100 ML VIAL As Ordered ONE (09:04)
[2025-05-28] MEDS: NS (Normal Saline) 0.9% 1,000 ML IV ONE ×2 (09:23→11:29)
[2025-05-28 09:33] LABS: BASO # 0.0 10^3/uL (0.0-0.2); BASO % 0.2 % (0.0-1.0); EOS # 0.1 10^3/uL (0.0-0.5); EOS % 1.1 % (0.0-3.0); LYMPH # 2.4 10^3/uL (1.5-5.0); LYMPH % 28.6 % (24.0-44.0); MONO # 0.8 10^3/uL (0.0-0.8); MONO % 9.4 % (2.0-8.0); NEUTROPHILS # 5.1 10^3/uL (1.5-8.5); NEUTROPHILS % 60.2 % (36.0-66.0); PLATELET COUNT, AUTOMATED 296 10^3/uL (150-450)
[2025-05-28 09:38] LABS: KETONE, URINE AUTO RFX NEGATIVE (NEGATIVE); LEUKOCYTE ESTERASE UR AUTO RFX NEGATIVE (NEGATIVE); NITRITE, URINE AUTO RFX NEGATIVE (NEGATIVE); RBC, URINE AUTO RFX 2 /HPF (0-3); SQUAM EPITHELIAL CELL UR AURFX 4 /HPF (0-6); WBC, URINE AUTO RFX 1 /HPF (0-3)
[2025-05-28 09:40] VITALS: BP 116/78; O2SAT 100
[2025-05-28 10:05] LABS: CK-MB VALUE MASS 1.2 NG/ML (<3.6)
[2025-05-28 10:07] LABS: ALT/SGPT 55 U/L (7.0-40); AST/SGOT 31 U/L (<34); CALCIUM LEVEL 8.5 MG/DL (8.5-10.1); CARBON DIOXIDE LEVEL 27 MMOL/L (20-31); CHLORIDE LEVEL 108 MMOL/L (98-107); CREATININE FOR GFR 0.95 MG/DL (0.55-1.30); GLOMERULAR FILTRATION RATE 75.3 (>58); HCG, SERUM QUALITATIVE NEGATIVE (NEGATIVE); POTASSIUM SERUM 4.7 MMOL/L (3.5-5.1); SODIUM LEVEL 144 MMOL/L (136-145)
[2025-05-28 10:14] LABS: CPK CREATINE PHOSPHOKINASE 98 U/L (34-145); MB/CK RELATIVE INDEX 1.22 (< OR =4)
[2025-05-28] MEDS: KETOROLAC 30 MG/ML 1 ML VIAL IV ONE (11:29)
[2025-05-28] MEDS: MECLIZINE 25 MG TABLET PO ONE (11:29)
[2025-05-28 11:44] LABS: CK-MB VALUE MASS < 1.0 NG/ML (<3.6)
[2025-05-28 11:46] LABS: CPK CREATINE PHOSPHOKINASE 82 U/L (34-145)
[2025-05-28 12:46] VITALS: BP 117/56; TEMP 97.1
[2025-05-28 12:49] VITALS: O2SAT 98
[2025-05-28 13:01] VITALS: O2SAT 98
[2025-05-28] MEDS ORDERED: MECL-209 PO (13:17)
== END 2025-05-28 13:20 | disposition home or self-care (01) ==
LOC: M ED 06:19
DX: R42 Dizziness and giddiness (principal); I95.1 Orthostatic hypotension; G90.A Postural orthostatic tachycardia syndrome [POTS]; R79.9 Abnormal finding of blood chemistry, unspecified; E03.9 Hypothyroidism, unspecified; Z79.899 Other long term (current) drug therapy; Z79.890 Hormone replacement therapy
CPT/HCPCS: 70450; 70496; 70498; 71046; 80047; 80048; 80076; 81001; 82550; 82553; 83690; 84484; 84703; 85025; 87086; 87486; 87581; 87633; 87798; 93005; 93041; 94760; 96361; 96374; 99285; J1885; Q9967